=== PATIENT | female | born 1995 | race Caucasian/White ===

== ENCOUNTER → 2025-08-24 15:40 | Outpatient (CLI) | payer OTHER, SELFPAY ==
--- NOTE | 2025-08-24 15:42 | DI.RAD.S_ITS ---
PROCEDURE: XR LUMBAR SPINE 2-3V INDICATIONS: right hip/ back pain TECHNIQUE: 3 views of the lumbar spine were acquired. COMPARISON: None. FINDINGS: Bones: 6 [id number] vertebrae are present; there appears to be a lumbarized S1 vertebral body. There is mild levodextrocurvature of the thoracolumbar spine. Mild height loss of the L3 vertebral body with irregularity of the superior endplate which may relate to old fracture. No substantial degenerative change or foraminal narrowing. Soft tissues: Overlying bowel gas pattern is normal. No suspicious soft tissue calcifications. IMPRESSION: 6 [id number] vertebrae are present with a lumbarized S1 vertebral body. Mild height loss of the L3 vertebral body with irregularity of the superior endplate which may relate to old fracture. No acute bony abnornmality or traumatic malalignment. Dictated by: Elmer Nance M.D. on 08/24/2025 at 16:53 Approved by: Elmer Nance M.D. on 08/24/2025 at 17:00
[2025-08-24 18:01] LABS: Add Manual Diff / Slide Review NO; Hematocrit 41.3 % (36-46); Hemoglobin 14.1 g/dL (12.0-16.0); Lymphocytes Absolute Auto 2100 /uL (1100-4500); Mean Corpuscular HGB Conc 34.2 % (30-36); Mean Corpuscular Hemoglobin 31.8 PG (26-34); Mean Corpuscular Volume 92.8 fL (80-100); Platelet Count 288 X10^3/uL (150-400)
[2025-08-24 18:12] LABS: Alanine Aminotransferase 87 IU/L (<35); Albumin 4.9 g/dL (3.5-5.0); Albumin Globulin Ratio 1.9 (1.0-2.8); Alkaline Phosphatase 76 U/L (38-126); Blood Urea Nitrogen 14 mg/dL (7-17); Calcium 9.9 mg/dL (8.4-10.2); Carbon Dioxide 25 mmol/L (22-32); Chloride 100 mmol/L (98-107); Estimated Glomerular Filt Rate > 60 mL/min (>60); Globulin 2.6 g/dL (1.7-4.1); Glucose 80 mg/dL (70-99); HEMOLYSIS < 15 (0-50); Potassium 4.3 mmol/L (3.4-5.1); Sodium 135 mmol/L (137-145); Total Protein 7.5 g/dL (6.3-8.2)
[2025-08-24 18:43] LABS: TSH w/ Reflex to FT4 0.69 uIU/mL (0.47-4.68)
== END ==
PROVIDERS: PCP Family Medicine; Referring Provider Family Medicine; Visit Provider Family Medicine
DX: M25.551 Pain in right hip (principal); F41.1 Generalized anxiety disorder; Z87.81 Personal history of (healed) traumatic fracture
CPT/HCPCS: 36415; 72100; 80053; 84443; 85025

== ENCOUNTER → 2025-08-31 07:59 | Outpatient (CLI) | payer OTHER, SELFPAY ==
--- NOTE | 2025-08-31 08:01 | DI.US.S_ITS ---
PROCEDURE: US ABDOMEN LIMITED INDICATIONS: Elevated LFTs TECHNIQUE: Real-time scanning was performed of the abdominal and retroperitoneal organs, with image documentation. COMPARISON: None. FINDINGS: Liver: Liver is normal in size and homogeneous in echotexture. Portal vein size and flow direction is normal. Gallbladder: No gallstones. No wall thickening. No pericholecystic edema. Negative sonographic Lozano's sign. Biliary ducts: Intrahepatic bile ducts are non-dilated. Extrahepatic bile duct caliber measures 3.7 mm. Normal is 6-7 mm or less in diameter, or 10 mm or less post-cholecystectomy. Pancreas: Visualized portions of the pancreas are sonographically normal. Miscellaneous: No free abdominal fluid. IMPRESSION: Source of abnormal liver function tests is not found. Dictated by: Zbigniew Dyer M.D. on 08/31/2025 at 11:39 Approved by: Zbigniew Dyer M.D. on 08/31/2025 at 11:41
--- NOTE | 2025-08-31 08:01 | DI.RAD.S_ITS ---
PROCEDURE: XR HIP W PEL IF DONE RT 2V INDICATIONS: Elevated LFTs, right hip pain TECHNIQUE: AP pelvis with lateral view(s) of the right hip(s). COMPARISON: None. FINDINGS: Bones: No fractures or dislocations. Pelvic ring appears intact. No suspicious bony lesions. Soft tissues: The visualized bowel gas pattern is normal. No suspicious soft tissue calcifications. IMPRESSION: No acute bony abnormality. Dictated by: Quita Gordon M.D. on 08/31/2025 at 16:23 Approved by: Quita Gordon M.D. on 08/31/2025 at 16:24
[2025-08-31 09:36] LABS: Blood Urea Nitrogen 17 mg/dL (7-17); Estimated Glomerular Filt Rate > 60 mL/min (>60); Glucose 87 mg/dL (70-99); HEMOLYSIS < 15 (0-50); Potassium 4.0 mmol/L (3.4-5.1); Sodium 136 mmol/L (137-145); Total Protein 6.9 g/dL (6.3-8.2)
[2025-08-31 12:04] LABS: Alanine Aminotransferase 29 IU/L (<35); Albumin 4.4 g/dL (3.5-5.0); Albumin Globulin Ratio 1.8 (1.0-2.8); Alkaline Phosphatase 58 U/L (38-126); Calcium 9.3 mg/dL (8.4-10.2); Carbon Dioxide 25 mmol/L (22-32); Chloride 102 mmol/L (98-107); Globulin 2.5 g/dL (1.7-4.1)
[2025-09-01 06:09] LABS: Hepatitis A Antibody IgM Negative (Negative); Hepatitis B Core Antibody IgM Negative (Negative); Hepatitis C Antibody Non Reactive (Non Reactive)
== END ==
PROVIDERS: PCP Family Medicine; Referring Provider Family Medicine; Visit Provider Family Medicine
DX: R79.89 Other specified abnormal findings of blood chemistry (principal); M25.551 Pain in right hip
CPT/HCPCS: 36415; 73502; 76705; 80053; 80074